=== PATIENT | male | born 1970 | race Caucasian/White ===

== ENCOUNTER → 2023-11-17 14:19 | Outpatient (CLI) | payer BC, SELFPAY ==
--- NOTE | ~2023-11-17 | XR_ITS ---
XR chest 2V 11/17/2023 14:32 Indication: Wheezing Procedure: 2 view chest Comparison: 12/18/2012 Findings: Left basilar airspace disease. Heart size normal. No edema. Calcified granuloma right upper lobe. No pleural effusion or pneumothorax. No acute osseous abnormality. Impression: 1: Left basilar airspace disease may represent atelectasis or developing pneumonia. Reviewed, dictated and finalized at location A. MACHINE FEEDER Impression: 1: Left basilar airspace disease may represent atelectasis or developing pneumo jessi.
== END ==
PROVIDERS: PCP Family Medicine; Visit Provider Nurse Practitioner Adult Health
DX: R06.2 Wheezing (principal); R91.8 Other nonspecific abnormal finding of lung field
CPT/HCPCS: 71046

== ENCOUNTER → 2023-12-11 15:52 | Outpatient (CLI) | payer BC, SELFPAY ==
--- NOTE | ~2023-12-11 | XR_ITS ---
XR chest 2V DATE: 12/11/2023 16:08 INDICATION: Pneumonia TECHNIQUE: 2 views COMPARISON: 11/17/2023 2 view chest FINDINGS: Normal heart size. No hilar or mediastinal enlargement. Minimal infiltrate or atelectasis at the left lung base. The lungs are otherwise clear. No pleural ef fusion or pulmonary vascular congestion or pneumothorax. Degenerative spurring of the thoracic spine. IMPRESSION: Minimal residual infiltrate or atelectasis at the left lung base Reviewed, dictated and finalized at location L. [facility]
== END ==
PROVIDERS: PCP Nurse Practitioner Adult Health; Visit Provider Nurse Practitioner Adult Health
DX: J18.9 Pneumonia, unspecified organism (principal)
CPT/HCPCS: 71046

== ENCOUNTER 2024-02-16 15:35 | Outpatient (CLI) | payer BC, SELFPAY ==
--- NOTE | ~2024-02-16 | MR_ITS ---
MRI of the right knee Clinical history: Pain Technique: Coronal proton density and proton density-weighted images, sagittal proton-density and T2 fat-sat images, and axial proton-density fat-saturated images were acquired. Findings: Anterior and posterior cruciate ligaments are intact. Medial collateral ligament and the la teral collateral ligament complex are intact. Popliteus tendon is intact. Questionable peripheral corner tear of the posterior horn of the medial meniscus. No lateral meniscal tear seen. Articular cartilage is well preserved throughout the knee. Bone marrow signals are unremarkable. Extensor mechanism is intact. No significant joint effusion or Arnold's cyst. Impression: Questionable peripheral corner tear of the posterior horn of the medial meniscus. No other significant findings. Reviewed, dictated and finalized at location M. Impression: Questionable peripheral corner tear of the posterior horn of the medial meniscu s. No other significant findings.
== END 2024-02-16 15:36 ==
DX: S83.241A Other tear of medial meniscus, current injury, right knee, initial encounter (principal); X58.XXXA Exposure to other specified factors, initial encounter; M25.561 Pain in right knee
CPT/HCPCS: 73721

== ENCOUNTER 2025-08-08 12:55 | Outpatient (CLI) | payer BC, SELFPAY ==
--- NOTE | ~2025-08-08 | XR_ITS ---
EXAM/ PROCEDURE: XR hand RT min 3V - 08/08/2025 13:08 CDT HISTORY: 55 years old Male with M79.641 - Pain in right hand COMPARISON: None available TECHNIQUE: Three view(s) FINDINGS/ IMPRESSION: There are no fractures or dislocations.Joint space narrowing, subchondral sclerosis, subchondral cyst formation and osteophyte formation, compatible with mild osteoarthritis. Reviewed, dictated and finalized at location N.
== END 2025-08-08 12:56 | disposition home or self-care (01) ==
LOC: MICIMG 12:56
PROVIDERS: PCP Family Medicine; Visit Provider Nurse Practitioner Family
DX: M79.641 Pain in right hand (principal)
CPT/HCPCS: 73130